=== PATIENT | female | born 1960 | race Caucasian/White ===

== ENCOUNTER 2020-10-03 08:18 | Emergency (ER) | payer OTHER ==
[~2020-10-03] VITALS: Ht 167.6 cm; Wt 104.5 kg
[2020-10-03 08:20] VITALS: BP 146/73
[2020-10-03] MEDS ORDERED: SULF1TAB24 PO (08:54)
[2020-10-03] MEDS ORDERED: L.AC1CAP6 PO (08:54)
[2020-10-03] MEDS ORDERED: CEFP200T PO (08:54)
--- NOTE | 2020-10-03 08:54 | PHYS DOC ---
Past History Additional Past Medical Histor: Rosacea Past Surgical History: General Adult EDM: Chief Complaint: LOWER EXT PAIN HPI: HPI: 59-year-old female past medical history of deviated septum and osteoarthritis, presents the ED with complaints of painful, nonpruritic rash to her right outer ankle that started around August 11, was treated with Keflex for 7 days and Bactroban, with no resolution of symptoms. States rash has persisted and now has swelling around the rash. Follows at [facility] and states her provider Dr. Moreno is out on leave, is requesting followup care. Denies any history of diabetes, hypertension, hyperlipidemia, immunocompromise state, steroid use or history of MRSA. Believes she was bit by a bug in July while in [place], has lived here the past 2 years. States she bruised her tailbone when she was 1 years old and asks if that could be related to her rash. Denies any joint pain or swelling, skin sloughing, purulent drainage or fluid-filled lesions. Review of Systems: Review of Systems: Constitutional: Denies fever or chills Eyes: Denies change in visual acuity HENT: Denies nasal congestion or sore throat Respiratory: Denies cough or shortness of breath Cardiovascular: Denies chest pain or edema GI: Denies nausea, vomiting, : Denies dysuria or hematuria Musculoskeletal: Denies joint pain or swelling or saddle anesthesia Integument: Denies diaphoresis or desquamation Neurologic: Denies focal weakness or sensory changes Psychiatric: Denies depression or anxiety Physical Exam: PE: Constitutional: Well developed, well nourished, no acute distress, non-toxic appearance. HENT: Normocephalic, atraumatic, Eyes: EOMI, conjunctiva normal, no discharge. Neck: Normal range of motion, supple, Cardiovascular: S1/2 present, regular rhythm Lungs & Thorax: Speaking in full sentences, bilateral equal chest rise, no tachypnea or increased work of breathing Abdomen: soft, no tenderness, Skin: Warm, dry, 4.5x4.5 area of macular/warm/erythema w/no fluid-filled lesions or subcutaneous emphysema over lateral distal leg with associated soft tissue swelling near rash, rash is not overlying right ankle joint, no right ankle/knee swelling/ttp, right toe cap refill < 1 second, negative nikolsky sign Extremities: no cyanosis, no unilateral lower extremity edema, R DP/PT intact, Neurologic: Alert and oriented X 3, normal motor function, normal sensory function, no focal deficits noted, Psychologic: Affect normal, judgement normal, mood normal. [] Current Patient Data: Vital Signs: Vital Signs Date Time Temp Pulse Resp B/P (MAP) Pulse Ox O2 Delivery O2 Flow Rate FiO2 10/03/20 08:20 98.2 71 16 146/73 98 Room Air EKG: EKG: [] Radiology/Procedures: Radiology/Procedures: [] Heart Score: C/O Chest Pain: No Risk Factors: Risk Factors: DM, Current or recent (<one month) smoker, HTN, HLP, family history of CAD, obesity. Risk Scores: Score 0 - 3: 2.5% MACE over next 6 weeks - Discharge Home Score 4 - 6: 20.3% MACE over next 6 weeks - Admit for Clinical Observation Score 7 - 10: 72.7% MACE over next 6 weeks - Early Invasive Strategies Course & Med Decision Making: Course & Med Decision Making Pertinent Labs and Imaging studies reviewed. (See chart for details) Concern for localized distal right lateral leg cellulitis w/no swollen joint or decreased range of motion of right ankle joint. Patient hemodynamically stable, afebrile. No signs of septic joint. Will treat with Vantin and Bactrim (and probiotics), cover for MRSA and recommend 48-hour wound check follow-up. Will discharge home with strict ED return precautions were given for fever, joint swelling or pain, neurologic deficits or worsening rash. Encouraged urgent outpatient follow-up with PMD and wound care prn if unable to see pcp. Life-threatening processes were considered but are low suspicion at this time, given history, physical exam and ED workup. Pt was educated on all prescription medications and adverse effects. All patient's questions were answered and pt was stable at time of discharge. Life/limb-threatening differential includes but is not limited to, erythema multiforme, brown-hung syndrome, toxic epidermal necrolysis, staphylococcal scalded skin syndrome, necrotizing fasciitis/myositis/cellulitis, purpura fulminans, heparin or warfarin induced skin necrosis, angioedema, anaphylaxis drug rash, disseminated intravascular coagulation, disseminated gonococcal disease, vasculitis, septicemia, petechial disorder or coagulopathy, viral exanthem, Kawasaki's disease or life-threatening burn requiring burn center management or escharotomy. I spoken with the patient and her caregivers. I explained the patient's condition, diagnoses and treatment plan based on the information available to me at this time. I have answered the patient and her caregiver's questions and addressed any concerns. The patient and her caregivers have a good understanding of patient's diagnosis, condition and treatment plan as can be expected at this point. Vital signs have been stable. Patient's condition is stable and appropriate for discharge from the emergency department. Patient will pursue further outpatient evaluation with primary care physician or other designated or consulting physician as outlined in the discharge instructions. The patient and/or caregivers are agreeable to this plan of care and follow-up instructions have been explained in detail. The patient and/or caregivers have received these instructions in written form and have expressed an understanding of the discharge instructions. The patient and/or caregivers are aware that any significant change of condition or worsening of symptoms should prompt immediate return to this or the closest emergency department or call to 911. Glory Disclaimer: Glory Disclaimer: This electronic medical record was generated, in whole or in part, using a voice recognition dictation system. Departure Departure: Impression: Primary Impression: Cellulitis of right leg without foot Disposition: 01 HOME / SELF CARE / HOMELESS Condition: STABLE Referrals: DARION OMRENO MD (PCP) Within 48 hours or [place] [address] OR [facility] [address] [place] [address] [phone] Patient Instructions: Cellulitis, Community-Associated MRSA Additional Instructions: RIGID [facility] [place] [address] OR [facility] [address] [place] [address] IF UNABLE TO SEE PCP OR ABOVE, FOLLOW UP WITH WOUND CARE: FOR DEFINITIVE MANAGEMENT [facility] [address], [address] [place] [address] EMERGENCY DEPARTMENT GENERAL DISCHARGE INSTRUCTIONS Thank you for coming to [facility] (ED) today and trusting us with you care. We trust that you had a positivie experience in our Emergency Department. If you wish to speak to the department management, you may call the director at [phone]. YOUR FOLLOW UP INSTRUCTIONS ARE FOLLOWS: 1. Do you have a private Doctor? If you do not have a private doctor, please ask for a resource list of physicians or clinics that may be able to assist you with follow up care. 2. The Emergency Physician has interpreted your x-rays. The X-Ray specialist will also review them. If there is a change in the findings, you will be notified in 48 hours when at all possible. 3. A lab test or culture has been done, your results will be reviewed and you will be notified if you need a change in treatment. ADDITIONAL INSTRUCTIONS AND INFORMATION: 1. Your care today has been supervised by a physician who is specially trained in emergency care. Many problems require more than one evaluation for a complete diagnosis and treatment. We recommend that you schedule your follow up appointment as recommended to ensure complete treatment of you illness or injury. If you are unable to obtain follow up care and continue to have a problem, or if your condition worsens, we recommend that you return to the ED. 2. We are not able to safely determine your condition over the phone nor are we able to give sound medical advice over the phone. For these safety reasons, if you call for medical advice we will ask you to come to the ED for further evaluation. 3. If you have any questions regarding these discharge instructions please call the ED at [phone]. SAFETY INFORMATION: In the interest of safety, wellness, and injury prevention; we encourage you to wear your sealbelt, if you smoke; quite smoking, and we encourage family to use a protective helmet for bicycling and other sporting events that present an increased risk for head injury. IF YOUR SYMPTOMS WORSEN OR NEW SYMPTOMS DEVELOP, OR YOU HAVE CONCERNS ABOUT YOUR CONDITION; OR IF YOUR CONDITION WORSENS WHILE YOU ARE WAITING FOR YOUR FOLLOW UP APPOINTMENT; EITHER CONTACT YOUR PRIMARY CARE DOCTOR, THE PHYSICIAN WHOSE NAME AND NUMBER YOU WERE GIVEN, OR RETURN TO THE ED IMMEDIATELY. Scripts L.acidoph & Paracasei,B.lactis (Probiotic) 1 Each Capsule 1 EACH PO DAILY for prophylaxis for 21 Days, #21 CAP Prov: URIEL DYE DO 10/03/20 Cefpodoxime Proxetil (CEFPODOXIME PROXETIL) 200 Mg Tablet 1 TAB PO BID for cellulitis for 14 Days, #28 TAB Prov: URIEL DYE DO 10/03/20 Sulfamethoxazole/Trimethoprim (BACTRIM DS TABLET) 1 Each Tablet 1 TAB PO BID for cellulitis for 14 Days, #28 TAB 0 Refills Prov: URIEL DYE DO 10/03/20 URIEL DYE DO Oct 03, 2020 08:54
== END 2020-10-03 09:10 | disposition home or self-care (01) ==
LOC: ER 08:18
DX: L03.115 Cellulitis of right lower limb (principal)
CPT/HCPCS: 99283